=== PATIENT | male | born 1960 | race African-American/Black ===

== ENCOUNTER 2016-11-15 11:33 | Emergency (ER) | payer OTHER ==
[2016-11-15] VITALS (8 sets, daily range): BP systolic 126–163; BP diastolic 79–103; PULSE 69–95; RESP 10–20; O2SAT 94–100
--- NOTE | 2016-11-15 12:30 | ED.REPORT ---
HPI-Syncope Date of Service Nov 15, 2016 ED Provider: Nithin Mott DO The patient is a 56 year old male who presents to the emergency department after he had a syncopal episode earlier today while he was at work. He was sitting in a meeting when he started to feel lightheaded. He went to the restroom and the next thing he remembers is waking up face down on the ground with blood under him from his nose. He does report feeling like his vision "boxed out" before he lost consciousness. He has not had similar symptoms in the past. At this time he complains of pain to his forehead, right side of neck , and right side of his head. He did not eat breakfast this morning and normally does. Last night the patient noticed some blurred vision on the right side which has continued today. He denies chest pain, shortness of breath, nausea, vomiting, speech changes, numbness or weakness. Nursing Notes Stated Complaint: PASSED OUT Chief Complaint: General Complaint Nursing Notes Reviewed: Yes Allergies: Coded Allergies: No Known Allergies (Unverified , 11/15/16) General Time Seen by Provider: 12:45 Chief Complaint Lost consciousness Syncope Description: Single episode Hx Obtained From: Patient Arrived By: Wheelchair Onset Occurred: 1 - 4 hours ago Symptom Duration: 1 - 15 minutes Progression Since Onset: Resolved Location: : Head: Neck Quality: Painful Severity: Current: Moderate Severity: Maximum: Moderate Recent Healthcare: No recent doctor visit, No recent hospitalization Similar Sx Previous: No Risk-Syncope NIH Stroke Scale Level of Consciousness: Alert and responsive (0) Ask Month & Age: Both questions right (0) Open/Close Eyes/Hand Dessert Cup Machine Feeder: Performs both tasks (0) Horizontal EO Movements: None (0) Visual Harris: No visual loss (0) Facial Palsy: Normal symmetry (0) Right Arm Motor Drift (10s): No drift 10 sec (0) Left Arm Motor Drift (10s): No drift 10 sec (0) Right Leg Motor Drift (5s): No drift 5 sec (0) Left Leg Motor Drift (5s): No drift 5 sec (0) Limb Ataxia FNF/Heel-Frost: No ataxia (0) Sensation (Arms/Legs/Face): Pinprick less sharp (1) (left upper extremity) Language Aphasia: No aphasia, normal (0) Dysarthria: No dysarthria, normal (0) Extinction/Inattention: No exctinct/inattent (0) NIHSS Score: 1 Time NIHSS Performed: 13:54 Date NIHSS Performed: Nov 15, 2016 Past Medical History Past Medical History Herniated disc Sciatica High cholesterol PTSD Depression Anxiety Past Surgical History Bilateral knee surgery Family History Noncontributory Smoking History Unknown if Ever Smoker Social History Alcohol Use: Denies alcohol use Other Social History: Good social support, , Local resident Occupation Retired marine Ambulatory Status Independent Review of Systems Constitutional: Denies: Chills, Fever Eyes: Reports: Blurred right Ears / Nose / Throat: Reports: Nose bleeding Respiratory: Denies: Non-productive cough, Shortness of breath Cardiovascular: Denies: Chest pain GI: Denies: Abdominal pain, Nausea, Vomiting Musculoskeletal: Reports: Neck pain Neurologic: Reports: Change LOC, Headache, Lightheaded, Syncope, Vision change , Denies: Focal weakness, Numbness, Slurred speech, Unable to speak Complete sys rev & neg: except as marked. Physical Exam Initial Vital Signs Vital Signs (First) Date Time Temp Pulse Resp B/P Pulse Ox O2 Delivery O2 Flow Rate FiO2 11/15/16 11:42 36.4 93 20 126/82 100 Room Air Initial VS: Reviewed Head / Eyes: Atraumatic, Normocephalic, PERRL ENT: Mucous membranes moist, Conjunctiva normal, No scleral icterus Abdomen / GI: Soft, Non-tender, No guarding, No rebound, No distention Lymphatic: No lymphadenopathy Upper Extremities: Vascular intact, Neuro intact, No swelling, No tenderness Skin: Warm, Dry, No cyanosis Psychiatric: Mood/affect normal, Behavior normal, Normal thought content General/Constitutional: Awake, Alert, No acute distress, Well appearing Respiratory / Chest: Atraumatic, Breath sounds NL, Breath sounds = bilat, No respiratory distress, No rales, No rhonchi, No wheezing Cardiovascular: Heart rate NL, Regular rhythm, Heart sounds NL, No gallop, No murmurs, No rubs, Cap refill not delayed, Peripheral circulation NL Lower Extremity / Pelvis / MS: Inspection NL, No swelling, Non-tender, No erythema, No deformity, Neurologic intact, Vascular intact, No edema Neurologic: Oriented X3, Speech NL, No motor deficits Decreased sensation to left upper extremity. Neck: No swelling, Non-tender, No midline vertebral tend Interpretation & Diagnostics Lab Results Interpretation Result Diagram: 11/15/16 1300 11/15/16 1300 Test 11/15/16 13:00 11/15/16 13:10 White Blood Count 11.7th/mm3 (3.8-10.1) Red Blood Count 5.13mil/mm3 (4.40-5.80) Hemoglobin 12.9g/dL (13.8-17.2) Hematocrit 39.0% (41.0-50.0) Mean Corpuscular Volume 76.0fL (81-100) Mean Corpuscular Hemoglobin 25.1pg (27.0-35.0) Mean Corpuscular Hemoglobin Concent 33.1% (32.0-37.0) Red Cell Distribution Width 15.3% (12.3-15.4) Platelet Count 268bil/L (150-400) Neutrophils (%) (Auto) 80.2% (40-74) Lymphocytes (%) (Auto) 13.9% (14-46) Monocytes (%) (Auto) 5.0% (4-12) Eosinophils (%) (Auto) 0.5% (0-5) Basophils (%) (Auto) 0.2% (0-3) Sodium Level 140mEq/L (134-144) Potassium Level 4.5mEq/L (3.5-5.2) Chloride Level 104mEq/L (97-108) Carbon Dioxide Level 23mmol/L (18-29) Blood Urea Nitrogen 12mg/dL (6-24) Creatinine 1.06mg/dL (0.76-1.27) Estimat Glomerular Filtration Rate 77mL/min (>59) Glucose Level 116mg/dL (60-99) Calcium Level 9.3mg/dL (8.5-10.1) Magnesium Level 1.9mg/dL (1.6-2.6) Total Bilirubin 0.3mg/dL (0.0-1.2) Aspartate Amino Transf (AST/SGOT) 24U/L (0-50) Alanine Aminotransferase (ALT/SGPT) 34U/L (0-44) Alkaline Phosphatase 66U/L (25-150) Troponin T < 0.010ug/L (0.0-0.011) Total Protein 7.5g/dL (6.4-8.4) Albumin 4.5g/dL (3.4-5.0) Hold Urine Received (Received) ECG Interpretation ECG Interpretation: Sinus rhythm with a rate of 79 LVH Time: 12:11 Interpreted by: ED physician CT Head Interpretation IMPRESSION: No acute intracranial abnormality. Dictated by: Ge Ontiveros M.D. on 11/15/2016 at 13:13 Study: Head CT no contrast Interpretation / Wet Read by: Interpret - Radiologist CT C-Spine Interpretation IMPRESSION: No fracture. Multilevel degenerative disc and facet disease. Dictated by: Ge Ontiveros M.D. on 11/15/2016 at 13:14 Study type: CT no contrast Interpretation / Wet Read by: Interpret - Radiologist Re-Eval/Medical Decision Med Decision/Clinical Course Patient has minor measurable stroke deficit on an age stroke scale however he also had syncope, EKG and troponin are unremarkable Leksell lites normal orthostatics negative. Head CT and C-spine are negative. Patient will undergo MRI to exclude ischemic insults as well as evaluate vasculature of the head and neck. Care transferred to Dr. Arguelles Source of Hx: Old records, Family Re-Evaluation/Progress #1: Time of Eval: 13:58 Re-Evaluation/Progress Note: Discussed CT results and exam findings with the patient and family. Will consult neurologist. Re-Evaluation/Progress #2: Time of Eval: 14:34 Re-Evaluation/Progress Note: Discussed plan for MRI with the patient and family. Consultation : Consulted With: Neurology Call Returned at: 14:28 Note: Spoke with neurologist from [facility] about the patient's case. Recommends MRI/MRA. Counseled Regarding: Diagnosis, Lab results Discharge & Departure Shift Change Sign-Out Patient Care Transferred: Yes Discussed Complaint(s): Yes Laboratory Evaluation: Lab evaluation discussed Imaging Studies: Ordered, not yet done Response to Therapy: Unchanged Impression: Primary Impression: Syncope Syncope type: unspecified Qualified Code: R55 - Syncope and collapse Additional Impression: Blurred vision, right eye Discharge Condition All VS Reviewed: Yes Condition: Stable Care Transferred to: Dr. Arguelles Care Transferred at: 15:01 Scribe Attestation Portions of this note were transcribed by Liss Reynolds. I, Dr. Mott personally performed the history, physical exam and medical decision-making; I reviewed and confirmed the accuracy of the information in the transcribed note. Signed by: Lucio Coronel, 11/15/2016 at 1450. Nithin Mott DO Nov 15, 2016 12:30 Liss Reynolds Nov 15, 2016 12:51
[2016-11-15] MEDS ORDERED: 0.9% Sodium Chloride 1,000 ML IV ONE (12:55)
[2016-11-15 13:10] LABS: BASOPHILS % (AUTO) 0.2 % (0-3); EOSINOPHILS % (AUTO) 0.5 % (0-5); Mean Corpuscular Hemoglobin 25.1 pg (27.0-35.0); NEUTROPHILS % (AUTO) 80.2 % (40-74); Platelet Count 268 bil/L (150-400)
--- NOTE | 2016-11-15 13:16 | DRSVH ---
PROCEDURE: CT BRAIN WITHOUT CONTRAST ([id number]) INDICATIONS: syncoipe TECHNIQUE: Noncontrast 4.5 mm thick angled axial sections acquired from the foramen magnum to the vertex, with c oronal reformats. COMPARISON: None. FINDINGS: Image quality: Excellent. CSF spaces: Basal cisterns are patent. No extra-axial fluid collections. Ventricles are normal in size and shape. Brain: No midline shift. No intracranial masses or hemorrhage. Root-white matter interface is norm al. Skull and face: Calvarium and visualized facial bones are intact, without suspicious lesions. Sinuses: Visualized sinuses and mastoids are clear. IMPRESSION: No acute intracranial abnormality. Dictated by: Ge Ontiveros M.D. on 11/15/2016 at 13:13 Approved by: Ge Ontiveros M.D. on 11/15/2016 at 13:14
--- NOTE | 2016-11-15 13:17 | DRSVH ---
PROCEDURE: CT CERVICAL SPINE WITHOUT CONTRAST ([id number]) INDICATIONS: neck pain post fall TECHNIQUE: Noncontrast 3 mm thick sections acquired from the skull base to the T4 level. Sagittal and coronal r eformats were then constructed. For radiation dose reduction, the following was used: automated exp osure control, adjustment of mA and/or kV according to patient size. COMPARISON: None. FINDINGS: Image quality: Excellent. Bones: No fractures or dislocations. Visualized superior ribs are intact. Multilevel disc space na rrowing and endplate osteophyte formation is present, indicating degenerative disc and facet disease. Soft tissues: Prevertebral soft tissues are normal in thickness. No paravertebral hematomas. No ap ical pneumothoraces. IMPRESSION: No fracture. Multilevel degenerative disc and facet disease. Dictated by: Ge Ontiveros M.D. on 11/15/2016 at 13:14 Approved by: Ge Ontiveros M.D. on 11/15/2016 at 13:16
[2016-11-15 13:38] LABS: TROPONIN T < 0.010 ug/L (0.0-0.011)
[2016-11-15 13:47] LABS: Magnesium 1.9 mg/dL (1.6-2.6)
[2016-11-15] MEDS ORDERED: HYDROcodone-APAP 5-325 mg Tablet PO ONE (16:35)
[2016-11-15] MEDS ORDERED: lidocaine cream TOP (19:37)
[2016-11-15] MEDS ORDERED: SERT100T PO (19:37)
[2016-11-15] MEDS ORDERED: MENTHOL TOP (19:37)
[2016-11-15] MEDS ORDERED: CYCL10TA9 PO (19:37)
[2016-11-15] MEDS ORDERED: FLUT16SP NS (19:37)
[2016-11-15] MEDS ORDERED: SILD100T PO (19:37)
[2016-11-15] MEDS ORDERED: OMEG500C PO (19:37)
[2016-11-15] MEDS ORDERED: PRAZ2CAP2 PO (19:37)
[2016-11-15] MEDS ORDERED: [UNRECOGNIZED DRUG - OTHER] TOP (19:37)
[2016-11-15] MEDS ORDERED: CHOL10008 PO (19:37)
[2016-11-15] MEDS ORDERED: HYDR-4003 PO (19:37)
[2016-11-15] MEDS ORDERED: PROP20TA5 PO (19:37)
--- NOTE | 2016-11-15 20:12 | DRSVH ---
PROCEDURE: MRI STROKE PROTOCOL ([id number]) Pre- and post-contrast brain MRI, non-contrast brain MR angiogram, pre- and postcontrast neck MR mónica ogram INDICATIONS: right sided arm numbness, right visual field loss TECHNIQUE: Brain: Noncontrast axial T1 spin echo, axial T2 fast spin echo, sagittal and axial FLAIR, coronal T2 fast spin echo, axial gradient echo, axial diffusion and ADC through the brain. After the administr ation of contrast, axial 3D VIBE of the cranial vasculature and brain. Brain MRA: Non-contrast 3-D time of flight MR angiogram, with multiple wajuzue-iwdqczest-zpqjuurddd (MIP) reformats performed. Neck MRA: Axial and sagittal TruFISP through the neck. Coronal dynamic MR angiogram during administ ration of contrast in the arterial and venous phases, with 3-dimenstional yehoarp-oriviwpmz-klwjmdvwp n (MIP) reformats constructed from subtraction images. COMPARISON: None. FINDINGS: Image quality: Excellent. BRAIN: CSF spaces: Ventricles are normal in size and shape. Basal cisterns are patent. No extra-axial flu id collections. Brain: No intracranial bleeds or mass effects. Root-white matter interface is normal. Diffusion we ighted images show no acute ischemic insults. Brainstem appears normal. Normal intravascular flow v oids are present. No abnormal intracranial enhancement. Skull and face: Calvarial marrow signal is normal. Orbits appear normal. Sinuses: There is mild mucosal thickening in the maxillary sinuses. Sinuses and mastoids are otherwi se clear. BRAIN MR ANGIOGRAM: Anterior circulation: Intracranial internal carotid arteries are normal in size and enhancement. Th e flow within the paired anterior cerebral arteries is normal and symmetric. The flow within the mid dle cerebral arteries is normal and symmetric. The anterior communicating artery is not seen. No st enoses, occlusions, or aneurysms. Posterior circulation: The right vertebral artery is diminutive superiorly. The left vertebral artery is dominant and forms the basilar artery. The flow within the posterior cerebral arteries is normal and symmetric. No stenoses, occlusions, or aneurysms. NECK MR ANGIOGRAM: Carotids: Great vessels demonstrate a conventional anatomy as they arise from the aortic arch. The origins of the common carotid arteries appear patent. The calibers and courses of both common caroti d arteries are normal. The bifurcation regions appear normal bilaterally. The internal carotid jass satish demonstrate normal course and caliber. Posterior circulation: The origins of the vertebral arteries appear patent. More superior portions of both vertebral arteries demonstrate normal course and caliber, and join to form a normal appearing basilar artery. Miscellaneous: Subclavian arteries appear patent. Pre-contrast images through the neck show no soft tissue abnormalities. IMPRESSION: BRAIN MRI: 1. No acute intracranial findings. Specifically, no findings to suggest acute or subacute infarct. BRAIN MR ANGIOGRAM: 1. No stenosis, occlusion, or aneurysm. NECK MR ANGIOGRAM: 1. No stenosis, occlusion, or aneurysm. The estimate of stenosis included in the report of the imaging study was calculated using the NASCET method Dictated by: Padma Kelly M.D. on 11/15/2016 at 20:01 Approved by: Padma Kelly M.D. on 11/15/2016 at 20:11
== END 2016-11-15 20:37 ==
LOC: SED 11:33
DX: R55 Syncope and collapse (principal); H53.8 Other visual disturbances; W18.39XA Other fall on same level, initial encounter; Y92.89 Other specified places as the place of occurrence of the external cause; Y93.89 Activity, other specified; Y99.0 Civilian activity done for income or pay
CPT/HCPCS: 36415; 70450; 70549; 70553; 72125; 80053; 82948; 83735; 84484; 85025; 93005; 96361; 96374; 99285; A9585; J2060; J7030